=== PATIENT | male | born 2000 | race Caucasian/White ===

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

== ENCOUNTER 2021-09-06 17:36 | Emergency (ER) | payer OTHER ==
[~2021-09-06] VITALS: Ht 172.7 cm; Wt 90.0 kg
[~2021-09-06 17:36] MED LIST: HYDR-3165 PO; ONDA4TAB7 PO; TAMS0.4C97 PO
--- NOTE | 2021-09-06 18:58 | RAD ---
Exam: Right toes 3 views INDICATION: Pinky toe pain after kicking wall TECHNIQUE: Frontal view of the right foot with oblique and lateral views of the fifth digit Comparisons: None FINDINGS: Bone mineralization is normal. No acute or healed fractures. Soft tissues are unremarkable. Joint spa eleanor are well-maintained. IMPRESSION: No acute osseous abnormality. Electronically signed by: Vamsi Hastings MD (09/06/2021 6:56 PM) [facility]
[2021-09-06] MEDS ORDERED: IBUPROFEN 600 MG TABLET. PO ONE (19:00)
[2021-09-06] MEDS ORDERED: ACETAMINOPHEN 500 MG TABLET PO ONE (19:00)
--- NOTE | 2021-09-06 19:22 | PHYS DOC ---
Past History Past Medical History: No Pertinent History (RICHARD BLOUNT APRN) Past Surgical History: No Surgical History (RICHARD BLOUNT APRN) Smoking: Non-smoker Alcohol Use: None (RICHARD BLOUNT APRN) Adult General Chief Complaint Chief Complaint: TOE PROBLEM HPI HPI Patient is a 21-year-old male who presents emergency department complaining of accidentally running his pinky toe into the refrigerator door at approximately 9 AM today without having shoes on. Patient reports taking 400 mg of ibuprofen at approximately 1500 with some pain relief. Patient denies other physical complaints or physical concerns. Patient denies trying other nonpharmacological pain relief methods prior to arrival to the ER today. (RICHARD BLOUNT APRN) Review of Systems Review of Systems 14 body systems of review of systems have been reviewed. See HPI for pertinent positives and negative responses, otherwise all other systems are negative, nonpertinent or noncontributory. Constitutional: Negative except as outlined in HPI above. Skin: Negative except as outlined in HPI above. Eyes: Negative except as outlined in HPI above. HENT: Negative except as outlined in HPI above. Respiratory: Negative except as outlined in HPI above. Cardiovascular: Negative except as outlined in HPI above. GI: Negative except as outlined in HPI above. : Negative except as outlined in HPI above. Musculoskeletal: Negative except as outlined in HPI above. Integument: Negative except as outlined in HPI above. Neurologic: Negative except as outlined in HPI above. Endocrine: Negative except as outlined in HPI above. Lymphatic: Negative except as outlined in HPI above. Psychiatric: Negative except as outlined in HPI above. (RICHARD BLOUNT APRN) Current Medications Current Medications Current Medications Medications (Trade) Dose Ordered Sig/Guerrero Start Time Stop Time Status Last Admin Dose Admin Acetaminophen (Tylenol) 1,000 mg 1X ONCE 09/06/21 19:00 09/06/21 19:01 DC 09/06/21 19:14 1,000 MG Ibuprofen (Motrin) 600 mg 1X ONCE 09/06/21 19:00 09/06/21 19:01 DC 09/06/21 19:15 600 MG (RICHARD BLOUNT APRN) Allergies Allergies Allergies Coded Allergies Type Severity Reaction Last Updated Verified Penicillins Allergy Unknown 11/15/19 Yes (RICHARD BLOUNT APRN) Physical Exam Physical Exam Constitutional: Well developed, well nourished, no acute distress, non-toxic appearance. 21-year-old male in no apparent distress. HENT: Normocephalic, atraumatic. Eyes: Conjunctiva normal, no discharge. Neck: Normal range of motion, no stridor. Cardiovascular: No cyanosis appreciated, distal cap refill less than 2 seconds. Lungs & Thorax: Patient is in no respiratory distress, no audible adventitious lung sounds appreciated. Abdomen: Nontender, no abnormalities noted. Skin: Warm, dry, no erythema, no rash. Back: No tenderness, no deformities. Extremities: No tenderness, no cyanosis, no clubbing, ROM intact, no edema. Except for right pinky toe, contusion to medial aspect, there is no deformity appreciated, distal cap refill less than 2 seconds, 2+ dorsalis pedis pulses bilaterally. No swelling appreciated. Satisfactory flexion extension of all toes. Neurologic: Alert and oriented X 3, normal motor function, normal sensory function, no focal deficits noted. Psychologic: Affect normal, judgement normal, mood normal. (RICHARD BLOUNT APRN) Current Patient Data Vital Signs Vital Signs Date Time Temp Pulse Resp B/P (MAP) Pulse Ox O2 Delivery O2 Flow Rate FiO2 09/06/21 17:36 77 14 140/90 (107) 100 Room Air (RICHARD BLOUNT APRN) EKG EKG [] (RICHARD BLOUNT APRN) Radiology/Procedures Radiology/Procedures STATUS: REG ER ORD. PHYSICIAN: RICHARD BLOUNT APRN REASON: Pinky toe pain after kicking wall PROCEDURE: TOES RIGHT Exam: Right toes 3 views INDICATION: Pinky toe pain after kicking wall TECHNIQUE: Frontal view of the right foot with oblique and lateral views of the fifth digit Comparisons: None FINDINGS: Bone mineralization is normal. No acute or healed fractures. Soft tissues are unremarkable. Joint spaces are well-maintained. IMPRESSION: No acute osseous abnormality. Electronically signed by: Vamsi Hastings MD (09/06/2021 6:56 PM) [facility] (RICHARD BLOUNT APRN) Heart Score C/O Chest Pain: No Risk Factors: Risk Factors: DM, Current or recent (<one month) smoker, HTN, HLP, family history of CAD, obesity. Risk Scores: Risk Factors: DM, Current or recent (<one month) smoker, HTN, HLP, family history of CAD, obesity. (RICHARD BLOUNT APRN) Course & Med Decision Making Course & Med Decision Making Pertinent Labs and Imaging studies reviewed. (See chart for details) 21-year-old male, vital signs reviewed, presents emergency department concerning right pinky toe pain after accidentally running into a refrigerator door approximately 9 AM today. Patient was given p.o. pain medication today in the emergency department, ice pack application, x-ray was ordered. X-ray of right pinky toe nonconcerning for acute fracture, discussed with patient x-ray findings, contusion care at home, strict follow-up with primary care this week for ongoing symptoms, patient gave verbal understanding of and is amenable to ED discharge planning. Discussed with the patient all findings and diagnostic testing as well as the ne ed to follow-up with their primary care provider for further evaluation and treatment or return to the ED if any new or worsening symptoms. Strict return precautions were also discussed at length, the patient voiced understanding and agreement with the discharge planning. The patient was nontoxic in appearance, in no apparent distress, and hemodynamically stable at the time of disposition. (RICHARD BLOUNT APRN) Course & Med Decision Making Agree with [facility]'s work-up and disposition per note. (MAITE CHANDRA MD) Dragon Disclaimer Dragon Disclaimer This electronic medical record was generated, in whole or in part, using a voice recognition dictation system. (RICHARD BLOUNT APRN) Departure Departure: Impression: Primary Impression: Contusion of toe of right foot Disposition: HOME / SELF CARE / HOMELESS Condition: GOOD Referrals: PCP,UNKNOWN (PCP) Patient Instructions: Contusion Additional Instructions: You were seen today after kicking the refrigerator door with your right pinky toe. The x-ray did not show any concerning findings of a broken bone. You do have a bruise to your pinky toe. Please use ice applications 30 minutes on and 30 minutes off while awake. Use Tylenol and/or Motrin for ongoing aches and pains. Please follow-up with your primary care physician at the [facility] for ongoing discomfort. Return to the emergency department for wo rsening symptoms or other concerns. Thank you for visiting our Emergency Department. It was a pleasure taking care of you today in the emergency department and we appreciate you trusting us with your care. If any additional problems come up don't hesitate to return to visit us. Please follow up with your primary care provider so they can plan additional care if needed and know about the problem that you had. If symptoms worsen come back to the Emergency Department. Any concerning symptoms that start such as chest pain, shortness of air, weakness or numbness on one side of the body, running high fevers or any other concerning symptoms return to the ER. EMERGENCY DEPARTMENT GENERAL DISCHARGE INSTRUCTIONS Thank you for coming to [facility] (ED) today and trusting us with you care. We trust that you had a positivie experience in our Emergency Department. If you wish to speak to the department management, you may call the director at [phone]. YOUR FOLLOW UP INSTRUCTIONS ARE FOLLOWS: 1. Do you have a private Doctor? If you do not have a private doctor, please ask for a resource list of physicians or clinics that may be able to assist you with follow up care. 2. The Emergency Physician has interpreted your x-rays. The X-Ray specialist will also review them. If there is a change in the findings, you will be notified in 48 hours when at all possible. 3. A lab test or culture has been done, your results will be reviewed and you will be notified if you need a change in treatment. ADDITIONAL INSTRUCTIONS AND INFORMATION: 1. Your care today has been supervised by a physician who is specially trained in emergency care. Many problems require more than one evaluation for a complete diagnosis and treatment. We recommend that you schedule your follow up appointment as recommended to ensure complete treatment of you illness or injury. If you are unable to obtain follow up care and continue to have a problem, or if your condition worsens, we recommend that you return to the ED. 2. We are not able to safely determine your condition over the phone nor are we able to give sound medical advice over the phone. For these safety reasons, if you call for medical advice we will ask you to come to the ED for further evaluation. 3. If you have any questions regarding these discharge instructions please call the ED at [phone]. SAFETY INFORMATION: In the interest of safety, wellness, and injury prevention; we encourage you to wear your sealbelt, if you smoke; quite smoking, and we encourage family to use a protective helmet for bicycling and other sporting events that present an increased risk for head injury. IF YOUR SYMPTOMS WORSEN OR NEW SYMPTOMS DEVELOP, OR YOU HAVE CONCERNS ABOUT YOUR CONDITION; OR IF YOUR CONDITION WORSENS WHILE YOU ARE WAITING FOR YOUR FOLLOW UP APPOINTMENT; EITHER CONTACT YOUR PRIMARY CARE DOCTOR, THE PHYSICIAN WHOSE NAME AND NUMBER YOU WERE GIVEN, OR RETURN TO THE ED IMMEDIATELY. Problem Qualifiers Primary Impression: Contusion of toe of right foot Encounter type: initial encounter Toe: lesser toe Damage to nail status: without damage Qualified Codes: S90.121A - Contusion of right lesser toe(s) without damage to nail, initial encounter RICHARD BLOUNT APRN Sep 06, 2021 19:22 MAITE CHANDRA MD Sep 06, 2021 22:23
[2021-09-06 19:30] VITALS: BP 138/86
== END 2021-09-06 19:30 | disposition home or self-care (01) ==
LOC: ER 17:36
DX: S90.121A Contusion of right lesser toe(s) without damage to nail, initial encounter (principal); Z88.0 Allergy status to penicillin; W22.8XXA Striking against or struck by other objects, initial encounter; Y93.89 Activity, other specified; Y92.89 Other specified places as the place of occurrence of the external cause; Y99.8 Other external cause status
CPT/HCPCS: 73660; 99283